=== PATIENT | male | born 1985 | race Caucasian/White ===

== ENCOUNTER 2019-12-02 10:56 | Emergency (ER) | payer OTHER ==
[~2019-12-02] VITALS: Ht 175.3 cm; Wt 88.9 kg
[2019-12-02 11:21] VITALS: BP 132/81; Ht 175.3 cm; Wt 88.9 kg
== END 2019-12-02 13:31 | disposition home or self-care (01) ==
LOC: ED 10:56
DX: S89.92XA Unspecified injury of left lower leg, initial encounter (principal); X50.0XXA Overexertion from strenuous movement or load, initial encounter; Y93.89 Activity, other specified; Y92.89 Other specified places as the place of occurrence of the external cause; Y99.8 Other external cause status
CPT/HCPCS: Q0092